=== PATIENT | male | born 1975 | race Caucasian/White ===

== ENCOUNTER 2016-12-17 11:54 | Day surgery (SDC) | payer OTHER ==
[~2016-12-17] VITALS: Ht 172.7 cm; Wt 86.4 kg
[~2016-12-17 11:54] MED LIST: PRINIVIL10 MG PO
[2016-12-20] MEDS ORDERED: ASPIRIN EC325 MG PO (13:04)
== END 2016-12-17 13:55 | disposition home or self-care (01) ==
LOC: PAIN 11:54
PROC: 3E0X33Z Introduction of Anti-inflammatory into Cranial Nerves, Percutaneous Approach (ICD-10-PCS; principal; 2016-12-17)
PROC: 3E0X3CZ (ICD-10-PCS; principal; 2016-12-17)
DX: M47.812 Spondylosis without myelopathy or radiculopathy, cervical region (principal); F41.9 Anxiety disorder, unspecified; M62.838 Other muscle spasm; G89.29 Other chronic pain; M54.2 Cervicalgia
CPT/HCPCS: J1030; J2250; J3010; S0020